=== PATIENT | male | born 1945 | race Caucasian/White ===

== ENCOUNTER 2020-06-29 12:12 | Emergency (ER) | payer OTHER, MEDICARE, SELFPAY ==
[2020-06-29 12:14] VITALS: BP 188/77; PULSE 66; RESP 16; TEMP 36.6; O2SAT 99; BMI 25.4
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
[2020-06-29 12:45] VITALS: BP 193/101; PULSE 66; RESP 16; O2SAT 99
[2020-06-29] MEDS: ketorolac 30 mg/mL INJ 15 MG IVP (13:15)
[2020-06-29 13:25] LABS: Basophils % 0.7 %; Eosinophils # 0.2 10^3/uL (0.0-0.8); Eosinophils % 2.8 %; Hematocrit 45.9 % (42.0-52.0); Hemoglobin 16.1 g/dL (11.7-16.6); Lymphocytes # 0.8 10^3/uL (0.8-4.8); Lymphocytes % 14.3 %; Mean Corpuscular HGB Conc 35.1 g/dL (30.0-36.0); Mean Corpuscular Volume 91.3 fL (80-94); Mean Platelet Volume 9.7 fL (7.4-10.4); Monocytes # 0.9 10^3/uL (0.2-0.9); Monocytes % 15.2 %; Neutrophils # 3.75 10^3/uL (1.8-7.7); Neutrophils % 66.5 %; Nucleated Red Blood Cells % 0 %; Platelet Count 339 10^3/cmm (130-400); Red Blood Count 5.03 10^6/uL (4.1-5.3); Red Cell Distribution Width 12.8 % (12.1-15.1); White Blood Count 5.7 10^3/uL (4.0-10.0)
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
[2020-06-29 13:46] VITALS: BP 192/85; PULSE 67; RESP 22; O2SAT 96
[2020-06-29 13:49] LABS: Add Urine Microscopic? NO
[2020-06-29 13:58] LABS: Bilirubin Urine Neg (Negative); Blood Urine Neg (Negative); Glucose Urine UA Norm (Normal); Ketones Urine Negative (Negative); Leukocyte Esterase Urine Negative (Negative); Nitrate Urine Negative (Negative); Protein Urine Neg (Negative); Urine Appearance Clear (CLEAR); Urine Color Yellow (Yellow); Urobilinogen Urine Norm (Negative); pH Urine 7 (5-7)
[2020-06-29 13:59] LABS: Alanine Aminotransferase 29 U/L (0-41); Albumin Level 4.5 g/dL (3.5-5.2); Alkaline Phosphatase 83 IU/L (40-130); Aspartate Amino Transferase 24 U/L (0-40); Blood Urea Nitrogen 7 mg/dL (8-23); Calcium 9.3 mg/dL (8.5-10.5); Carbon Dioxide 25 mmol/L (22-29); Chloride 91 mmol/L (98-107); Globulin 3.5 g/dL (1.3-4.6); Glucose 91 mg/dL (65-115); Osmolality Calculated 262 mOsm/kg (285-295); Sodium 127 mmol/L (136-145); Total Bilirubin 0.5 mg/dL (0.15-1.2)
[2020-06-29 14:00] LABS: Anion Gap 15.3 (5-19); Potassium 4.3 mmol/L (3.5-5.1)
[2020-06-29 14:31] VITALS: BP 178/90; PULSE 68; RESP 18; O2SAT 99
== END 2020-06-29 14:32 | disposition home or self-care (01) ==
PROVIDERS: Emergency Provider Family Medicine; PCP Family Medicine
DX: Z04.1 Encounter for examination and observation following transport accident (principal); V89.2XXA Person injured in unspecified motor-vehicle accident, traffic, initial encounter; Z79.02 Long term (current) use of antithrombotics/antiplatelets
CPT/HCPCS: 70450; 72125; 80053; 81003; 85025; 96374; 99283; J1885